=== PATIENT | male | born 1960 | race Caucasian/White ===

== ENCOUNTER 2022-04-16 07:36 | Emergency (ER) | payer MEDICARE, OTHER ==
[~2022-04-16] VITALS: Ht 160 cm; Wt 86.4 kg
[~2022-04-16 07:36] MED LIST: NOCURR
[2022-04-16] MEDS ORDERED: FLUORESCEIN SODIUM 1 MG STRIP OU ONE (10:15)
[2022-04-16] MEDS ORDERED: PROPARACAINE HCL 0.5% 15 ML OPHTHALMIC SOLUTION OU ONE (10:15)
[2022-04-16] MEDS ORDERED: ERYT3.5O8 OU (10:46)
[2022-04-16 11:14] VITALS: BP 128/81
== END 2022-04-16 12:07 | disposition home or self-care (01) ==
LOC: EMS 08:09
DX: H10.31 Unspecified acute conjunctivitis, right eye (principal); K46.9 Unspecified abdominal hernia without obstruction or gangrene; Z91.018 Allergy to other foods
CPT/HCPCS: 99173; 99283

== ENCOUNTER 2024-07-10 04:27 | Emergency (ER) | payer MEDICARE, OTHER ==
[~2024-07-10] VITALS: Ht 167.6 cm; Wt 75.0 kg
[~2024-07-10 04:27] MED LIST changes: +ERYT3.5O8 OU; -NOCURR
[2024-07-10 04:38] VITALS: TEMP 97.7
[2024-07-10] MEDS: DiphenhydrAMINE HCL 50 MG/ML VIAL IVP ONE (05:42)
[2024-07-10] MEDS: ACETAMINOPHEN 325 MG TABLET PO ONE (05:42)
[2024-07-10] MEDS: SODIUM CHLORIDE 0.9% 1,000 ML IV ONE (05:43)
[2024-07-10] MEDS: METOCLOPRAMIDE HCL 5 MG/ML 2 ML VIAL IVP ONE (05:43)
[2024-07-10 05:55] LABS: BASOPHILS % (AUTO) 0.8 % (0.0-2.0); EOSINOPHILS % (AUTO) 0.8 % (1.0-6.0); HEMATOCRIT 46.6 % (41-53); HEMOGLOBIN 16.1 g/dL (13.5-17.5); LYMPHOCYTES # (AUTO) 3.8 K/uL (1.0-4.8); MEAN CORPUSCULAR HEMOGLOBIN 29.6 pg (26.0-34.0); MEAN CORPUSCULAR HGB CONC 34.5 G/dL (31.0-37.0); MEAN CORPUSCULAR VOLUME 86 fL (80-100); MONOCYTES # (AUTO) 0.8 K/uL (0.1-1.0); MONOCYTES % (AUTO) 7.6 % (2.0-9.0); NEUTROPHILS % (AUTO) 55.8 % (40.0-70.0); PLATELET COUNT (AUTO) 213 K/uL (150-450); RED BLOOD CELL COUNT(AUTO) 5.43 MIL/uL (4.50-5.90); RED CELL DISTRIBUTION WIDTH 13.4 % (11.5-14.5); WHITE BLOOD COUNT (AUTO) 10.8 K/uL (4.5-11.0)
[2024-07-10 06:16] LABS: ANION GAP 5 mmol/L (8-16); CARBON DIOXIDE 30 mmol/L (22-29); CHLORIDE 99 mmol/L (98-107); CREATININE 0.97 mg/dL (0.60-1.30); GLOMERULAR FILTR. RATE CALC > 60 mL/min (>60); GLUCOSE,RANDOM 122 mg/dL (70-110); POTASSIUM 3.6 mmol/L (3.5-5.1); SODIUM SERUM 134 mmol/L (136-145); UREA NITROGEN, BLOOD 17 mg/dL (7-18)
[2024-07-10 06:30] VITALS: BP 134/78; PULSE 62; RESP 16; O2SAT 97
== END 2024-07-10 06:50 | disposition home or self-care (01) ==
LOC: EMS 04:30
DX: R51.9 Headache, unspecified (principal); I10 Essential (primary) hypertension; G61.0 Guillain-Barre syndrome; Z91.018 Allergy to other foods; Z79.2 Long term (current) use of antibiotics; Z98.890 Other specified postprocedural states
CPT/HCPCS: 99285; 96374; 70450; 96361; 96375; 80048; 85025; 36415; J1200; J2765; J7030